=== PATIENT | male | born 1995 | race Caucasian/White ===

== ENCOUNTER → 2019-10-18 | Outpatient (REF) ==
--- NOTE | 2019-10-18 16:06 | Diagnostic Imaging Report ---
INDICATION: Left wrist pain post injury. EXAMINATION: AP, oblique and lateral views of the left wrist were obtained. FINDINGS: No fracture or acute bony abnormality is seen. Joint spaces are unremarkable. IMPRESSION: Negative left wrist. Dictated by: Dictated on workstation # [id number]
== END | disposition home or self-care (01) ==
LOC: OCC 15:52
PROVIDERS: ATTEND Nurse Practitioner Family
CPT/HCPCS: 73110